=== PATIENT | female | born 1965 | race Caucasian/White ===

== ENCOUNTER 2023-03-04 16:54 | Outpatient (REF) | payer SELFPAY | END 2023-03-04 16:55 | disposition home or self-care (01) | LOC: NPLBCLIENT 16:54 | PROVIDERS: Visit Provider Nurse Practitioner Family | DX: L65.9 Nonscarring hair loss, unspecified (principal); K76.0 Fatty (change of) liver, not elsewhere classified | CPT/HCPCS: 84443 ==

== ENCOUNTER 2024-10-25 08:48 | Emergency (ER) | payer OTHER, SELFPAY ==
[2024-10-25 08:52] VITALS: BP 118/74; PULSE 71; RESP 18; TEMP 36; O2SAT 96; BMI 38.2
--- OUTSIDE RECORDS SUMMARY | 2024-10-25 08:52 | XMS_ITS | Clinical Summary ---
Author Organization [facility] [employer] [facility] Address [address] [place] [address] Care Team Providers Care Transfer Agent Name Role Phone Masha Fall MD Primary Care Provider [phone] Allergies Active Allergy Reactions Criticality Noted Date Comments House Dust Mite Itching Medium 03/21/2021 Medications cetirizine (ZYRTEC) 10 mg tablet cetirizine 10 mg tablet TAKE ONE TABLET BY MOUTH EVERY DAY NEEDED FOR FOR ALLERGY SYMPTOMS PROBLEMS Active olopatadine (Pataday Twice Daily Relief) 0.1 % ophthalmic solution Pataday Twice Daily Relief 0.1 % eye drops INSTILL 1 DROP INTO AFFECTED EYE(S) 2 TIMES PER DAY AT AN INTERVAL OF 6 TO 8 HOURS Active Active Problems Problem Noted Date Diagnosed Date Dyslipidemia 09/25/2021 Nonalcoholic fatty liver disease 03/31/2020 Obesity 03/31/2020 Encounters Date Type Department Care Team Description 10/04/2024 Lab Requisition [facility] [address] [place], [place] [id number] Tamra Wills RN, FRENCH LECTURER from Last 3 Months Immunizations Name Administration Dates Next Due Influenza, IIV4 06/14/2022,07/23/2021 Tdap 06/14/2022 Family History Medical History Relation Name Comments Ulcers Father Hypertension Mother Kidney disease Mother Cancer-breast Sister Relation Name Status Comments Father Mother Alive Sister Social History Tobacco Use Types Packs/Day Years Used Date Smoking Tobacco: Never Smokeless Tobacco: Never Tobacco Cessation:Counseling Given: Yes Alcohol Use Standard Drinks/Week Comments Not Currently 0 (1 standard drink = 0.6 oz pur e alcohol) PHQ-2 Answer Date Recorded PHQ-2 TOTAL SCORE 0 06/14/2022 Social Connections Answer Date Recorded Frequency of Communication with Friends and Fami ly Not on file 03/15/2022 Comments No Sex and Gender Information Value Date Recorded Sex Assigned at Not on file Legal Sex Female 9:15 AM CDT Gender Identity Not on file Sexual Orientation Not on file Obstetrics History Last Filed Vital Signs Vital Sign Reading Time Taken Comments Blood Pressure 127/82 06/14/2022 8:17 AM CDT Pulse 58 06/14/2022 8:17 AM CDT Temperature 36.3 C (97.3 F) 03/15/2022 7:47 AM CDT Respiratory Rate 16 03/21/2021 5:40 PM CDT Oxygen Saturation 97% 06/14/2022 8:17 AM CDT Inhaled Oxygen Concentration - - Weight 94.5 kg (208 lb 6.4 oz) 06/14/2022 8:17 A M CDT Height 157.9 cm (5' 2.17) 06/14/2022 8:17 AM CD T Body Mass Index 37.91 06/14/2022 8:17 AM CDT Plan of Treatment Health Maintenance Due Date Last Done Comments HIV for age 15-65 1979 Colonoscopy through age 75 2009 Pneumococcal series for age 50+ (1 of 1 - PCV) 2014 Zoster (shingles) series for age 50+ (1 of 2) 2014 BMI (ht and wt on same day) for age 18+ 06/14/2023 06/14/2022, 03/15/2022 Depression screening for age 12+ 06/14/2023 06/14/20 22, 06/14/2022 Mammogram for age 45-75 06/28/2023 06/28/2022, 10/05 COVID-19 vaccine series (2023- season) 2024 07/23/2021, 12/02/2020, 11/11/2020 Influenza for age 50-64 04/25/2024 06/14/2022, 07/23 Lipids for age 45-75 06/14/2027 06/14/2022 Pap test for age 21-65 10/04/2029 , 10/04/2024, 07/13/2019, Additional history exists Tetanus booster 06/14/2032 06/14/2022 RSV vaccine for adults or (1 - 1-dose 75+ series) 2039 Hepatitis C screening for ag e 18-79 Completed 06/14/2022 Tdap Completed 06/14/2022 Procedures Procedure Name Priority Date/Time Associated Diagnosis Comments LAB TRACKING EVENT Routine 10/04/2024 11 :38 AM REEFER ENGINEER Encounter for screening for malignant neoplasm of cervix BUTTON BREAKER THIN PREP PAP SCREEN IMAGED Routine 10/04/2024 11:38 AM REEFER ENGINEER Encounter for screening for malignant neoplasm of cervix HPV HIGH RISK Routine 10/04/2024 11:38 AM REEFER ENGINEER Encounter for screening for malignant neoplasm of cervix XR MAMMO BRADLEY BILAT SCREEN Routine 06/28/2022 1:39 PM CDT Visit for screening mammogram ANTI HCV Routine 06/14/2022 9:44 AM CDT Need for hepatitis C screening test LIPID PANEL W REFLEX MEASURED LDL Routine 06/14/2022 9:44 AM CDT Screening for lipid disorders from Last 3 Months or Most Recently Relevant to Health Maintenance Results * LAB TRACKING EVENT (10/04/2024 11:38 AM REEFER ENGINEER) Other (Other) Client Collect / Unknown 10/04/2024 11:38 AM REEFER ENGINEER 10/04/2024 6:10 PM REEFER ENGINEER us Tamra Wills RN, FRENCH LECTURER LAB BILL ONLY Final Result [facility] [address] [place] [address], * BUTTON BREAKER THIN PREP PAP SCREEN IMAGED (10/04/2024 11:38 AM REEFER ENGINEER) Case Report Gynecologic Cytology Report Case: [id number] Authorizing Provider: Tamra Wills RN, Collected: 10/04/2024 1138 FRENCH LECTURER Ordering Location: [facility] Received: 10/05/[address] [place] [address] First Screen: Mango Black Specimen: BUTTON BREAKER ThinPrep Vial Screening, Cervical 10/17/2024 8:22 AM REEFER ENGINEER [facility] INTERPRETATION/ RESULT NEGATIVE FOR INTRAEPITHELIAL LESION OR MALIGNANCY (NIL) (none) 10/17/2024 8:22 AM REEFER ENGINEER [facility] [employer] [facility]AT[facility] IMEN ADEQUACY Satisfactory for evaluation Endocervical cells cannot be evaluated due to severe atrophy Scant cellularity 10/17/2024 8:22 AM REEFER ENGINEER [facility] [employer] ENTRAL LABORATORY HPV REQUEST HPV and PAP 10/17/2024 8:22 AM REEFER ENGINEER [facility] [employer] ENTRAL LABORATORY Last Pap Date 07/30/2019 10/17/2024 8:22 AM REEFER ENGINEER [facility] [employer] [facility] Abnormal Pap or Gallup Bx in last 5 years No 10/17/2024 8:22 AM REEFER ENGINEER [facility] [employer] [facility] EN[facility] Gallup Bx Done Today No 10/17/2024 8:22 AM REEFER ENGINEER [facility] [employer] [facility] Additional Information 10/17/2024 8:22 AM REEFER ENGINEER [facility] [employer] [facility] Comment: Interpreted at [facility] - [address] [place] [address], [place] [address] Automated Review Successful 10/17/2024 8:22 AM REEFER ENGINEER [facility] [employer] ENTRAL LABORATORY Comment:Specimen processed s uccessfully by automated furniture maker device, ThinPrep Imaging System, [employer] ANCILLARY TESTING BUTTON BREAKER HPV Ordered, Please see separate report 10/17/2024 8:22 AM REEFER ENGINEER [facility] [employer] ENTRAL LABORATORY Note The pap test is a screening technique, not a diagnostic procedure. It is used primarily to screen for squamous cancers and precursor lesions. Published studies have shown that it is subject to both false negative and false positive results. The pap test should not be used as the sole means to diagnose or exclude pre-malignant and malignant lesions. 10/17/2024 8:22 AM REEFER ENGINEER [facility] ENTRAL LABORATORY Other (Cervical) 10/04/2024 11:38 AM REEFER ENGINEER 10/05/2024 3:28 PM REEFER ENGINEER Tamra Wills RN, FRENCH LECTURER PATHOLOGY/CYTOLOGY Fi nal Result Performing Organization Address [facility] Co de Phone Number [facility] [address] [place] [address], [place] * HPV HIGH RISK (10/04/2024 11:38 AM REEFER ENGINEER) TYPE 16 Negative Negative 10/07/2024 2:10 PM REEFER ENGINEER [facility] LAB[facility] TYPE 18 Negative Negative 10/07/2024 2:10 PM REEFER ENGINEER [facility] TRAL LABORATORY OTHER HIGH RISK TYPES Negative Negative 10/07/2024 2:10 PM REEFER ENGINEER [facility] TRAL LABORATORY Other Client Collect / Unknown 10/04/2024 11:38 AM REEFER ENGINEER 10/07/2024 8:43 AM REEFER ENGINEER Narrative [facility] - 10/07/2024 2:10 PM REEFER ENGINEER HPV types 16, 18, 31, 33, 35, 39, 45, 51, 52, 56, 58, 59, 66 and 68 DNA were undetectable or below the pre-set threshold. Methodology: Tory Hunter 4800 HPV Test us Tamra Wills RN, FRENCH LECTURER MICROBIOLOGY Final Result Performing Organization Address [facility] de Phone Number [facility] [address] [place] [address], [place] * XR MAMMO BRADLEY BILAT SCREEN (06/28/2022 1:39 PM CDT) Anatomical Region Laterality Modality BREASTS, Breast Left, Breast Right Bilateral Mammography Impressions 07/04/2022 12:56 PM REEFER ENGINEER There is no radiographic evidence for malignancy. Recommend annual mammograms. MAMMOGRAM ASSESSMENT: ACR 1 Negative PATIENTS: You will also receive a letter with your examination results in an easy to read format. If you have questions about your results, please contact your referring provider. Narrative 07/04/2022 12:56 PM REEFER ENGINEER For Patients: As a result of the Century Cures Act, medical imaging exams and procedure reports are released immediately into your electronic medical record. You may view this report before your referring provider. If you have questions, please contact your health care provider. XR MAMMO BRADLEY BILAT SCREEN [[id number]] CLINICAL HISTORY: This is an asymptomatic 57 y.o. patient. INDICATION FOR EXAM: Mammogram Screening. TECHNIQUE: CC & MLO views were obtained. This study was evaluated with the assistance of Computer-Aided Detection. Breast Tomosynthesis was used in interpretation. COMPARISON FILM: Yes 11/17/20 Outside Facility 09/10/19 Outside Facility FINDINGS: The breasts have scattered areas of fibroglandular density. There are no dominant masses, suspicious micro calcifications or areas of architectural distortion. us Masha Fall MD MAMMO Final Resul t * (ABNORMAL) LIPID PANEL W REFLEX MEASURED LDL [[id number]] (06/14/2022 9:44 AM CDT) CHOLESTEROL,TOTAL 222(H) 100 - 199 mg/dL 06/15/2022 5:36 PM CDT [facility] TRIGLYCERIDES 110 <150 mg/dL 06/15/2022 5:36 PM CDT [facility] HDL CHOLESTEROL 43 >40 mg/dL 5:36 PM CDT [facility] NON-HDL CHOLESTEROL 179(H) <145 mg/dl 06/15/2022 5:36 PM CDT [facility] CHOL/HDL RATIO 5.16(H) <4.50 06/15/2022 5:36 PM CDT [facility] LDL CHOLESTEROL 157(H) <=130 mg/dL 06/15/2022 5:36 PM CDT [facility] VLDL CHOLESTEROL 22 <=30 mg/dL 06/15/2022 5:36 PM CDT [facility] PROVIDER ORDERED STATUS RANDOM 06/15/2022 5:36 PM CDT [facility] TR[facility] Blood BLOOD SPECIMEN / Unknown Venipuncture / Unknown 06/14/2022 9:44 AM CDT 06/14/2022 9:44 AM CDT Masha Fall MD CHEMISTRY Final Resul t Performing Organization Address City/[facility]/ZIP Co de Phone Number [facility] [address] [place] [address], * ANTI HCV (06/14/2022 9:44 AM CDT) HEPATITIS C ANTIBODY Non-React layla Non-React layla 06/15/2022 5:55 PM CDT [facility] Comment:Antibodies to HCV no t detected; does not exclude the possibility of exposure to HCV. Blood BLOOD SPECIMEN / Unknown Venipuncture / Unknown 06/14/2022 9:44 AM CDT 06/14/2022 9:44 AM CDT us Masha Fall MD SEND OUTS Final Resul t Performing Organization Address City/[facility] Co de Phone Number [facility] [address] [place] [address], from Last 3 Months or Most Recently Relevant to Health Maintenance Insurance [employer] [id number] [facility] [place] [id number] Care Teams Transfer Agent Relationship Specialty Start Date End Date Masha Fall MD [address] [address] PCP - General Family Practice 03/15/22
--- OUTSIDE RECORDS SUMMARY | 2024-10-25 08:52 | XMS_ITS | Continuity of Care Document ---
Author Organization [facility] emaze[facility]I [facility] OFFICE Address [address] [place] [id number] Assessment Encounter Date Assessment Date Assessment LastModified by Organization Details LastModified Time 10/04/2024 10/04/2024 At least 15 minutes spent with patient, reviewing chart and completing documentation . [email or web address] Not available 10/04/2024 18:16:51 Plan of Treatment Reminders Order Date Submit Date Provider Last Modified By Organization Details Last Modified Time Details Appointments Any 30 025 09:30AM Lisa Whitaker MD Not available Not available Not available Lab pap, LB + HR HPV 025 10/04/19 25 [facility] Office, [address] [place] [address], [phone], 10/07/2024 17:14:59 Referral None record ed. Procedures None record ed. Surgeries None record ed. Imaging None record ed. Medication Orders None record ed. Patient TargetsNo targets recorded. Patient InstructionsNo instructions recorded. Reason for Referral None Reported. Problems Name Problem SNOMED Code Status Onset Date Resolution Date Notes Provider Name and Address Organization Details Recorded Time Dyslipidemia 375139270 Active 2021 Tamra Wills NP [address] [place], [address], [facility] [employer] 4 11:50:20 Non-alcoholic fatty liver 651202768 Active 2019 Tamra Wills NP [address] [place], [address], [facility] [employer] 4 11:50:22 Obesity 990619524 Active 2019 Tamra Wills, MAIL CLERK BILLS [address] [place], [address], [facility] Problem Notes None recorded. Procedures Surgical History Date Name Laterality Status Provider Name and Address Organization Details Recorded Time 024 Electrodessication and Curettage completed SANJU GARNICA, LASHAE [address] [place], [address], [facility] 10/28/2023 21:15:33 Appendectomy completed Lesa Hernadez, ABIMBOLA [address] [place], [address], [facility] 09/26/2021 10:17:45 Imaging Results None recorded. Procedure Notes None recorded. Medical Equipment None Reported. Allergies Allergen ID Allergen Name Allergen Category Reaction Reaction Severity Criticality Documentation Date Start Date Code Code System Note Provider Name and Address Organization Details Recorded Time 144 house dust allergeni c extract environme nt,medica tion Not available Not available Not available 03/31/2020 38929 9 RxNorm Not Available Not Available Not Available Medications Name Sig Start Date Stop Date Status Note LastModified by Organization Details LastModified Time Depo-Medrol 40 mg/mL suspension for injection Take 40 mg as needed by injection route, for injection x1 in office. 2024 active Lot [id number] Not Available Not Available Not Available cetirizine 10 mg tablet Take 1 tablet every day by oral route. active Not Available Not Available No t Available prednisone 20 mg tablet Take 1 tablet twice a day by oral route with meals for 3 days. 09/25 completed Not Available Not Available Not Available meclizine 12.5 mg tablet TAKE 1-2 TABLETS BY MOUTH 1/2 BEFORE BEDTIME NEEDED FOR DIZZINESS active Not Available Not Available No t Available ofloxacin 0.3 % ear drops INSTILL 5 DROPS IN BOTH EARS FOLLOWED BY COTTON EVERY DAY FOR 7 DAYS 12/03 completed Not Available Not Available Not Available amoxicillin 875 mg tablet TAKE 1 TABLET (875 MG) BY MOUTH TWO TIMES DAILY FOR 5 DAYS. 12/19 completed Not Available Not Available Not Available Ear Wax Removal Drops 6.5 % INSTILL 5 DROPS INTO AFFECTED EAR(S) 2 TIMES PER DAY 01/20 completed Not Available Not Available Not Available ciprofloxac in 0.3 % eye drops INSTILL 4 DROPS INTO RIGHT EAR TWICE A DAY X 7 DAYS. WE ARE USING THIS FOR EAR. 01/20 completed Not Available Not Available Not Available clotrimazol e 1 % topical solution INSTILL 1 DROP INTO RIGHT EAR TWICE A DAY FOR 14 DAYS active Not Available Not Available No t Available Valtrex 1 gram tablet Take 1 tablet every 12 hours by oral route as directed for 7 days. 09/25 completed Not Available Not Available Not Available ketoconazol e 2 % topical cream APPLY TO AFFECTED AREA(S) ONCE DAILY 08/04 completed Not Available Not Available Not Available naproxen 500 mg tablet Take 4-5 days/week 08/04 completed Not Available Not Available Not Available neomycin-po lymyxin-hyd rocort 3.5 mg-10,000 unit/mL-1 % ear drops,susp PLACE 3 DROPS INTO RIGHT EAR 3 TIMES DAILY FOR 7 DAYS. 12/19 completed Not Available Not Available Not Available All Day Allergy (cetirizine ) 10 mg capsule 1 capsule every day as needed for allergy problems 12/19 completed Not Available Not Available Not Available Flonase Allergy Relief 50 mcg/actuati on nasal spray,suspe nsion [place] 1 spray every day by intranasa l route. active Not Available Not Available No t Available Flonase Allergy Relief 06/07 completed Not Available Not Available Not Available Pataday Twice Daily Relief 0.1 % eye drops INSTILL 1 DROP INTO AFFECTED EYE(S) 2 TIMES PER DAY AT AN INTERVAL OF 6 TO 8 HOURS 12/19 completed Not Available Not Available Not Available Vitals Date Recorded Body height Body mass index (BMI) Body weight Respiratory rate Body temperature Oxygen saturation Oxygen saturation in Arterial blood by Pulse oximetry Heart rate Systolic blood pressure Diastolic blood pressure Provider Name and Address Organization Details Last Updated DateTime 5 160.02 cm 37.7 kg/m2 62517.4 6 g 26 /min 97.4 [degF] 96 % 96 % 70 /min 124 mm[Hg] 71 mm[Hg] Kacy Reaves [facility] 11:58:28 Social History Question Answer Notes LastModified by Organizat ion Details LastModified Time Tobacco Smoking Status Never Smoker Lesa Hernadez NP [address] [place], [address], [facility] 09/26/2021 10:17:34 What Is Your Level Of Alcohol Consumption? Occasional [email or web address] Information not available 09/26/2021 Sex: Unknown Functional Status None recorded. Mental Status None recorded. Family History Nothing Reported. Medical History No medical history recorded. Gynecological HistoryNo gynecological history recorded. Obstetrics History GPAL:G 0 P 0 0 0 0 Immunizations Vaccine Type Date Status Note Provider Nam e and Address Organization Details Recorded Time COVID-19, mRNA, LNP-S, PF, 30 mcg/0.3 mL dose 07/23/2021 completed SARAH ROY [address] [place], [address], [facility] 07/23/2021 18:55:21 Past Encounters Encounter ID Performer Location Encounter Start Date Encounter Closed Date Diagnosis/Indication Diagnosis SNOMED-CT Code Diagnosis ICD10 Code Diagnosis Note [id number] [facility] [place] [facility] [address] [facility] [place] [address] 09/06/2024 13:58:04 09/06/2024 17:27:11 Otomycosis 79859593 B36.9 - exam concerning for this- treat with Clotrimazo le- ENT referral in place Trochanter ic bursitis of left hip 6827179272 44144 M70.62 - reviewed options- patient would like to trial exercises and amenable to injection into L greater trochanter - 1mL of 1% Lidocaine mixed with 40mg of Depo-Medro l and injected into L greater trochater, patient tolerated well [id number] Tamra Wills NP [place] [facility] [address] [place] [address] 10/04/2024 11:38:21 10/04/2024 14:04:00 Screening for malignant neoplasm of cervix 273548619 Z12.4 No clinical concerns. Advised patient we will call with results in 2-4 weeks. Finding re lated to health insurance issues [id number] Z59.9 Not eligible for MNSure r/t income. Can we please see if patient is eligible for the NFH+C program? She should see a orthopaedi c/sports athletic trainer (sounds like she has an upcoming APC appointmen t); can we also add on that program. Health Concerns Section Related Observation LastModified by Organization Detai ls LastModified Time None Recorded Concern Status LastModified by Organization Details LastModified Time None Recorded Payers Encounter Date Sequence Insurance Name Policy Number Policy Woody Covered Member ID Woody Member ID Guarantor Name 10/04/2024 SLIDING FEE SCHEDULE - DISCOUNT Li Kvng Kim Notes Date Note Type Note Provider Name and Address Organization Details Recorded Time 10/04/2024 text/html Li Calderon i s a 59 year old Chinese-speaking patient who presents today for a Lito visit. Due for pap only. Pap: Last pap 07/30/19: NILM/HPV negative. No symptoms. Mammo: Last done 05/18. Bi-RADS 1. Had one repeat mammogram in [facility] due to fibroma. Sister has a history of breast cancer. Recovered. Dx'd at 51 in [facility]. PMH: non-alcoholic fatty liver disease, dyslipidemia, lumbar spine degenerative changes Tamra Wills, MAIL CLERK BILLS [address] [place], [address], [facility] 10/04/2024 18:17:00 OBGyn Episode No OBEpisode recorded.
--- OUTSIDE RECORDS SUMMARY | 2024-10-25 08:52 | XMS_ITS | Data Portability ---
Author Organization [facility] Address [address] [place] [address] [facility] [id number] Assessment Encounter Date Assessment Date Assessment LastModified by Organization Details LastModified Time 10/04/2024 10/04/2024 At least 15 minutes spent with patient, reviewing chart and completing documentation . [email or web address] Not available 10/04/2024 18:16:51 Plan of Treatment Reminders Order Date Submit Date Provider Last Modified By Organization Details Last Modified Time Details Appointments Any 30 2024 09:30A Thomas Whitaker MD Not available Not available Not available Lab pap, LB + HR HPV 2024 025 [facility] Office, [address] [place] [address] [place], [address], 10/07/2024 17:14:59 lipid panel, serum 2023 024 [facility] Office, [address] [place] [address] [place], [address], 01/30/2024 11:22:08 glycohemo globin, total, blood 2023 024 [facility] Office, [address] [place], [place] [address], [address], 01/30/2024 11:22:07 hepatic function panel, serum 2023 024 [facility] Office, [address] [place] [address] [place], [address], 01/30/2024 11:22:08 Referral patient navigator 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 2023 024 [email or web address] Not available 06/09/2024 15:06:43 otolaryng ologist referral - Significa nt scarring of right TM. 2023 024 [email or web address] Not available 06/09/2024 15:06:53 Procedures None recorded. Surgeries None recorded. Imaging MAMMO, screening , bilateral 2023 [facility] Radiology Department, [address] [place], [address], 03/25/2024 16:38:31 US, liver 2023 [facility] Radiology Department, [address] [place], [address], 03/23/2024 09:35:58 Medication Orders Depo-Medr ol 40 mg/mL suspensio n for injection [email or web address] [place] [address], [address] [place], [address], 09/06/2024 17:21:58 clotrimaz ole 1 % topical solution 2024 025 [facility], [address] [place], [address], 09/07/2024 10:48:41 meclizine 12.5 mg tablet 2023 024 [facility], [address] [place], [address], 06/07/2024 15:23:51 Patient TargetsNo targets recorded. Patient Instructions Encounter Date Encounter Id Patient Instructions Last Modified By Organization Details Last Modified Time 10/28/2023 [id number] Return as needed for further treatment [email or web address] Not available 10/28/2023 21:16:05 01/21/2024 [id number] At least 25 minutes spent with patient, reviewing chart and completing documentation. 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 Referring Physician: Tamra Wills, [facility], Encounter Date: 06/07/2024 Has class a regional truck driver's license. Loli sanchez to apply for [employer] expansion. Referring Physician: Tamra Wills [facility], Encounter Date: 06/07/2024 Results Created Date Observation Date Name Description Value Unit Range Abnormal Flag Note LastModifiedBy Organization Detail LastModifiedTime 01/30/20 24 01/30/2024 lipid panel , serum A1C 5.5 Not Available [facility] [address] [place], [address], 01/30/2024 11:22:08 01/30/20 24 01/30/2024 lipid panel , serum ALT 52 high Not Available [facility] [address] [place], [address], 01/30/2024 11:22:08 01/30/20 24 01/30/2024 lipid panel , serum total cholesterol 197 Not Available [facility] [address] [place], [address], 01/30/2024 11:22:08 01/30/20 24 01/30/2024 lipid panel , serum triglyceride s 129 Not Available [facility] [address] [place], [address], 01/30/2024 11:22:08 01/30/20 24 01/30/2024 lipid panel , serum HDL 34 Not Available [facility] [address] [place], [address], 01/30/2024 11:22:08 01/30/20 24 01/30/2024 lipid panel , serum LDL 137 Not Available [facility] [address] [place], [address], 01/30/2024 11:22:08 01/30/20 24 01/30/2024 hepat ic funct ion panel , serum A1C 5.5 Not Available [facility] [address] [place], [address], 01/30/2024 11:22:07 01/30/20 24 01/30/2024 hepat ic funct ion panel , serum ALT 52 high Not Available [facility] [address] [place], [address], 01/30/2024 11:22:07 01/30/20 24 01/30/2024 hepat ic funct ion panel , serum total cholesterol 197 Not Available [facility] [address] [place], [address], 01/30/2024 11:22:07 01/30/20 24 01/30/2024 hepat ic funct ion panel , serum triglyceride s 129 Not Available [facility] [address] [place], [address], 01/30/2024 11:22:07 01/30/20 24 01/30/2024 hepat ic funct ion panel , serum HDL 34 Not Available [facility] [address] [place], [address], 01/30/2024 11:22:07 01/30/20 24 01/30/2024 hepat ic funct ion panel , serum LDL 137 Not Available [facility] [address] [place], [address], 01/30/2024 11:22:07 01/30/20 24 01/30/2024 glyco hemog lobin , total , blood A1C 5.5 Not Available [facility] [address] [place], [address], 01/30/2024 11:12:51 01/30/20 24 01/30/2024 glyco hemog lobin , total , blood ALT 52 high Not Available [facility] [address] [place], [address], 01/30/2024 11:12:51 01/30/20 24 01/30/2024 glyco hemog lobin , total , blood total cholesterol 197 Not Available [facility] [address] [place], [address], 01/30/2024 11:12:51 01/30/20 24 01/30/2024 glyco hemog lobin , total , blood triglyceride s 129 Not Available [facility] [address] [place], [address], 01/30/2024 11:12:51 01/30/20 24 01/30/2024 glyco hemog lobin , total , blood HDL 34 Not Available [facility] [address] [place], [address], 01/30/2024 11:12:51 01/30/20 24 01/30/2024 glyco hemog lobin , total , blood LDL 137 Not Available [facility] [address] [place], [address], 01/30/2024 11:12:51 03/23/20 24 03/22/2024 US, liver No observ ation record ed. [address] Radiology [address] [place], [address], 03/24/2024 13:11:33 03/25/20 24 03/22/2024 MAMMO , scree cassidy, bilat eral No observ ation record ed. [address] Radiology Department [address] [place], [address], 03/26/2024 10:41:14 05/14/20 24 05/13/2024 MAMMO , scree cassidy, bilat eral No observ ation record ed. [address] Radiology [address] [place], [address], 05/17/2024 15:30:10 Result Notes Documentation Provider Name and Address Organization Details Recorded Time Mammo, Screening, Bilateral : Mammogram Mammogram Context: ACR density 1 Right: [place] [address] [place] [address], [address], [facility] [employer] 05/17/2024 15:30:10 Problems Name Problem SNOMED Code Status Onset Date Resolution Date Notes Provider Name and Address Organization Details Recorded Time Dyslipidemia 063005620 Active 2021 [place] [address] [place] [address], [address], [facility] [employer] 11:50:20 Non-alcoholic fatty liver 482410563 Active 2019 [place] [address] [place] [address], [address], [facility] [employer] 11:50:22 Obesity 902899715 Active 2019 [place] [address] [place] [address], [address], [facility] [employer] 11:50:25 Problem Notes None recorded. Procedures Surgical History Date Name Laterality Status Provider Name and Address Organization Details Recorded Time 024 Electrodessication and Curettage completed SANJU GARNICA CNP [address] [place], [address], [facility] [employer] 10/28/2023 21:15:33 Appendectomy completed Lesa Hernadez NP [address] [place], [address], [facility] [employer] 09/26/2021 10:17:45 Imaging Results Imaging Date Name Status LastModified by Organiz ation Details LastModified Time 03/22/2024 US, liver completed [address] Radiology [address] [place], [address], 03/24/2024 13:11:33 03/22/2024 MAMMO, screening, bilateral completed [address] Radiology Department [address] [place], [address], 03/26/2024 10:41:14 05/13/2024 MAMMO, screening, bilateral completed [address] Radiology [address] [place], [address], 05/17/2024 15:30:10 Procedure Notes None recorded. Medical Equipment None Reported. Allergies Allergen ID Allergen Name Allergen Category Reaction Reaction Severity Criticality Documentation Date Start Date Code Code System Note Provider Name and Address Organization Details Recorded Time 144 house dust allergeni c extract environme nt,medica tion Not available Not available Not available 03/31/2020 49817 9 RxNorm Not Available Not Available Not Available Medications Name Sig Start Date Stop Date Status Note LastModified by Organization Details LastModified Time Depo-Medrol 40 mg/mL suspension for injection Take 40 mg as needed by injection route, for injection x1 in office. 2024 active Lot [id number] Not Available Not Available Not Available [...] Relief 50 mcg/actuati on nasal spray,suspe nsion Cidra 1 spray every day by intranasa l [...] mass index (BMI) Body weight Respiratory rate Oxygen saturation Oxygen saturation in Arterial blood by Pulse oximetry Body temperature Heart rate Systolic blood pressure Diastolic blood pressure Provider Name and Address Organization Details Last Updated DateTime 4 160.02 cm 36.6 kg/m2 64094.1 8 g 22 /min 99 % 99 % 97.6 [degF] 66 /min 123 mm[Hg] 76 mm[Hg] Kacy Reaves [facility] 4 11:52:14 Date Recorded Body height Body mass index (BMI) Body weight Body temperature Oxygen saturation Oxygen saturation in Arterial blood by Pulse oximetry Heart rate Systolic blood pressure Diastolic blood pressure Provider Name and Address Organization Details Last Updated DateTime 4 160.02 cm 36.5 kg/m2 65993.0 3 g 96.9 [degF] 96 % 96 % 65 /min 118 mm[Hg] 70 mm[Hg] [facility] [place] [facility] 4 12:19:09 Date Recorded Body height Body mass index (BMI) Body weight Heart rate Oxygen saturation Oxygen saturation in Arterial blood by Pulse oximetry Systolic blood pressure Diastolic blood pressure Provider Name and Address Organization Details Last Updated DateTime 5 160.02 cm 37.9 kg/m2 53741.0 5 g 79 /min 94 % 94 % 118 mm[Hg] 72 mm[Hg] Lisa Whitaker MD [address] [place], [address] 8[facility] 5 17:15:09 Date Recorded Body height Body mass index (BMI) Body weight Respiratory rate Body temperature Oxygen saturation Oxygen saturation in Arterial blood by Pulse oximetry Heart rate Systolic blood pressure Diastolic blood pressure Provider Name and Address Organization Details Last Updated DateTime 5 160.02 cm 37.7 kg/m2 87018.4 6 g 26 /min 97.4 [degF] 96 % 96 % 70 /min 124 mm[Hg] 71 mm[Hg] Kacy Reaves [facility] 5 11:58:28 Social History Question Answer Notes LastModified by Organizat ion Details LastModified Time Tobacco Smoking Status Never Smoker Lesa Hernadez NP [address] [place], [address], [facility] 09/26/2021 10:17:34 What Is Your Level Of [...] mL dose 07/23/2021 completed SARAH ROY [address] [place], [address], [facility] 07/23/2021 18:55:21 Past Encounters Encounter ID Performer Location Encounter Start Date Encounter Closed Date Diagnosis/Indication Diagnosis SNOMED-CT Code Diagnosis ICD10 Code Diagnosis Note [id number] Tamra Wills NP [facility] [address] [facility] [place] [address] 03/27/2020 12:20:37 03/28/2020 17:42:40 Pain of left ankle joint 7870306685 [id number] M25.572 Acute onset of left ankle pain with swelling and warmth. While I would like to examine the ankle in person, I suspect that imaging and labs will be indicated regardless . No known preceding injury; some footwear changes but these do not explain severe nature of pain. Will obtain plain films and labs; consider gout, arthritis flare. I will call with results; if these studies are not available until next week when I am away I will ask Dr. Bourne or Esvin Hernadez to take over patient's follow-up. Advised rest, elevation, icing of joint and APAP (patient has been told to avoid NSAIDs). 03/31/20 Addendum: When patient was in clinic for her labs on 03/29, I briefly examined her ankle: Edematous over and posterior lateral malleolus; diffusely tender. No ecchymosis or erythema. Some warmth. ROM limited by pain but patient ambulates fairly easily. Reviewed I will put together a plan based on labs and X-rays. Advised to ER if sudden leg swelling increased and/or redness r/t concern for deep thrombus. 03/31/20 15:30 Addendum: Left a message asking patient to call back (Francoise pinedai ). CBC and ESR normal. Ankle XR normal. Uric acid very slightly elevated at 6.4mg/dl. [id number] Lesa Hernadez NP [facility] [address] [facility] [place] [address] 03/29/2020 10:25:20 03/29/2020 16:04:07 [id number] Tamra Wills NP [facility] [address] [facility] [place] [address] 04/17/2020 10:01:11 04/17/2020 10:53:41 Pain of left ankle joint 5347735675 4409196 M25.572 Persistent . RTC this afternoon to be evaluated by Dr. Riojas as scheduled. [id number] [facility] [address] [place] [address] 04/17/2020 16:52:02 04/25/2020 13:00:01 Pain in left foot 3155860207 [id number] Ja Keys MD [facility] [address] [place] [address] 07/10/2020 15:56:22 07/10/2020 16:43:31 Pain in left foot 5107938477 [id number] Ja Keys MD [facility] [address] [place] [address] 08/07/2020 15:57:11 08/07/2020 17:25:18 Pain in left foot 8230922419 39490 M79.672 [id number] [facility] [address] [place] [address] 08/08/2020 19:02:24 08/09/2020 10:33:37 Non-alcoholic fatty liver 581287144 K76.0 liver function panel Herpes zoster 8761539 B0 2.9 [id number] Renaldo Bourne MD [facility] [address] [place] [address] 09/25/2020 16:33:37 09/25/2020 17:20:32 Steatosis of liver 361088799 K76.0 needs to diet [id number] Tamra Wills NP [facility] [address] [place] [address] 10/11/2020 10:21:23 10/11/2020 14:12:17 Screening mammography 73260503 Z12.31 Reassuring breast exam today. Mammogram ordered. Breast cancer risk reduction reviewed. Podiatry referral underway. Dr. Bourne will provide primary care. [id number] MD MAXI [facility] [address] [place] [address] 01/09/2021 18:02:16 01/10/2021 12:21:34 Non-alcoholic fatty liver 288743306 K76.0 LFT's about the same, weight loss will help [id number] Renaldo Bourne MD [facility] [address] [place] [address] 01/30/2021 18:05:29 01/31/2021 12:09:50 Non-alcoholic fatty liver 921240651 K76.0 discuss weight and get f/u labs Pain of le ft ankle joint 2389380135 8510088 M25.572 needs APC [id number] Renaldo Bourne MD [facility] [address] [place] [address] 03/06/2021 17:51:26 03/06/2021 19:42:14 Non-alcoholic fatty liver 199041761 K76.0 discuss weight and get f/u labs [id number] SARAH ROY [facility] [address] [place] [address] 07/23/2021 17:43:48 09/12/2021 03:52:43 Administration of SARS-CoV-2 mRNA vaccine 1746784719 Z23 [id number] Renaldo Bourne MD [facility] [address] [place] [address] 08/07/2021 19:19:35 08/07/2021 19:46:22 Otitis externa 7069716 H60.93 prob many factors [id number] Lesa Hernadez NP [facility] [address] [place] [address] 09/26/2021 09:59:43 09/26/2021 10:39:35 Screening for malignant neoplasm of breast 802894302 Z12.39 Breast pain could be musculoske letal, as patient reports strenuous job, or breast cyst. Due to family history of breast cancer in sister, will do diagnostic mammogram and U/S. Follow up pending results Non-alcoho lic fatty liver 301477073 K76.0 Recheck labs today. Follow up pending results. Allergic rhinitis 991195 04 J30.9 Refill Cetirizine Hearing change 586796309 R44.9 Intermitte nt tinnitus/r educed hearing. Exam of ears normal today. Encouraged continued use of over-the-e ar headphones , avoidance of cotton swabs. Follow up if symptoms worsen. [id number] Tamra Wills NP [facility] [address] [facility] [place] [place] [address] 12/03/2021 10:41:56 12/03/2021 11:26:16 Pain of breast 65990697 N64.4 Resolving. Normal diagnostic mammo and U/S. Advised repeating mammo in 1 year. RTC with return of symptoms or new concerns. Non-alcoho lic fatty liver 870479746 K76.0 Stable LFTs. Should be checked annually along with routine screening labs. [id number] Dr. Ja Keys MD [facility] [address] [facility] [place] [address] 12/03/2021 11:09:26 12/03/2021 11:26:44 Carpal tunnel syndrome 59777858 G56.00 Pain of bi lateral hands 9704791768 8343674 M79.641 M79.642 [id number] Renaldo Bourne MD [facility] [address] [place] [address] [facility] [place] [address] 12/19/2022 10:45:04 12/19/2022 11:49:32 Non-alcoholic fatty liver 431361812 K76.0 needs labs Pain in fi nger of right hand 5226289961 27359 M79.644 prob beginning of osteoarthr itis Impacted c erumen of bilateral ears 7390862115 084002 H61.23 [id number] HAROLDO METZGER MD [facility] [address] [facility] [address] [facility] [place] [address] 02/11/2023 13:55:05 02/11/2023 14:45:47 Seborrheic dermatitis 45996523 L21.9 consider stronger cortisone cream Seborrheic keratosis 394 728295 L82.1 picked off the upper portion of the lesion on the scalp. Remainder are flat , on chest, and face. Dermatolog y consult to consider cryo treatment (we don't have available now) Multiple skin tags 61509 7009 L91.8 removed several in the underarms and neck, and one under the breasts. (total of 9 removed- using alcohol, pick ups and scissors, followed by silver nitrate to coagulate. ) Loss of scalp hair 76577 0004 L65.9 stress, vs other. Discussed options. will consider TSH in future [id number] Tamra Wills NP [facility] [address] [place] [address] 02/12/2023 10:37:40 02/12/2023 11:52:43 Loss of hair 345407381 L65.[address] Metzger; some symptoms consistent with concern for hypothyroi dism including hair thinning. Check TSH and we will call [facility] results. Screening for malignant neoplasm of breast 544305825 Z12.39 Reviewed breast cancer risk reduction with patient including maintainin g a healthy weight, diet low in alcohol and rich in fruits and vegetables . Mammogram ordered; we will call with results. Impacted c erumen in right ear 5992635057 567557 H61.21 Washed with 4 bottles of warm tap water over 30 minutes. Large cerumen plug finally cleared from canal; patient tolerated well. Attempted to remove left plug but limited by time (left was significan tly less impacted than right). Advised against q-tips. [id number] SANJU GARNICA CNP [facility] [address] [place] [address] 06/10/2023 18:50:14 06/10/2023 19:30:53 Female pattern alopecia 5050100 L64.8 Milia of eyelid 68350054 7 H02.829 Multiple skin tags 59591 7009 L91.8 Seborrheic keratosis 394 332766 L82.1 [id number] Tamra Wills NP [facility] [address] [place] [address] 08/04/2023 12:16:53 08/04/2023 12:52:48 Acute otitis externa 68727710 H60.509 Mild. RIght ear. 7-day course of Cipro 0.3% (need ophthalmic formulatio n r/t formulary; avoid neomycin as I cannot fully visualize TM). To call if any concerns, worsening. Impacted c erumen of bilateral ears 1524709977 766553 H61.23 Unable to completely remove all cerumen. Patient will start Debrox after she completes treatment for right OE. [id number] SANJU GARNICA CNP [facility] [address] [place] [address] 10/28/2023 19:28:24 10/28/2023 20:28:53 Inflamed seborrheic keratosis 420431726 L82.0 [id number] Tamra Wills NP [facility] [address] [place] [address] 01/21/2024 11:43:09 01/21/2024 12:32:32 Dyslipidemia 170631888 E78.5 Due for lipid check; we will call with results. Obesity 496464992 E66.9 BMI remains 36. Encouraged continued attention to TLCs. Non-alcoho lic fatty liver 927925129 K76.0 Due for annual check; in addition will obtain liver U/S as this has not been done. Impacted c erumen of bilateral ears 7274039183 970086 H61.23 Able to remove all cerumen. Restart Debrox if needed. No longer wearing earplugs at work. Screening for malignant neoplasm of breast 483339505 Z12.39 Reviewed breast cancer risk reduction with patient including maintainin g a healthy weight, diet low in alcohol and rich in fruits and vegetables . Mammogram ordered for February when patient is du. Diabetes m ellitus screening 687825247 Z13.1 Routine. Call with results. Low back pain 294558203 M54.50 x 3 weeks. With right-side d sciatic distributi on symptoms. No alarm features. Reassuring exam. Reviewed LBP HEP; patient will start this. RTC if no improvemen t in 4-6 weeks. [id number] Tamra Wills NP [facility] [address] [place] [address] 06/07/2024 12:13:03 06/07/2024 15:10:48 Insomnia 819306161 G47.00 Conservati ve care reviewed. Night time Meclizine may also help with this. 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 Likely contributi ng to episodes of vertigo and abnormal hearing. ENT and audiology referrals indicated. Patient has [place] residence and will be eligible for [facility] expansion in the coming months. Appointmen t set up today to help patient apply.We will continue Cetirizine and I advised 100% adherence to Flonase. Trial of PRN night-time Meclizine. Cautioned on sedation and side effects.Pa tient to call with any worsening or other concerns.D ue to F/U here 09/18. Finding re lated to health insurance issues [id number] Z59.9 [id number] MD [facility]I [facility] [address] [facility] [place] [address] 09/06/2024 13:58:04 09/06/2024 17:27:11 Otomycosis 81820886 B36.9 - exam concerning for this- treat with Clotrimazo le- ENT referral in place Trochanter ic bursitis of left hip 8579544259 10950 M70.62 - reviewed options- patient would like to trial exercises and amenable to injection into L greater trochanter - 1mL of 1% Lidocaine mixed with 40mg of Depo-Medro l and injected into L greater trochater, patient tolerated well [id number] Tamra Wills NP [facility] [address] [place] [address] 10/04/2024 11:38:21 10/04/2024 14:04:00 Screening for malignant neoplasm of cervix 462713268 Z12.4 No clinical concerns. Advised patient we will call with results in 2-4 weeks. Finding re lated to health insurance issues [id number] Z59.9 Not eligible for M[employer] r/t income. Can we please see if patient is eligible for the NFH+C program? She should see a orthopaedi c/audit specialist (sounds like she has an upcoming APC appointmen t); can we also add on that program. Health Concerns Section Related Observation LastModified by Organization Detai ls LastModified Time None Recorded Concern Status LastModified by Organization Details LastModified Time None Recorded Advance Directives Directive None Recorded Payers Encounter Date Sequence Insurance Name Policy Number Policy Woody Covered Member ID Woody Member ID Guarantor Name 10/28/2023 SLIDING FEE SCHEDULE - DISCOUNT Li Kim 01/21/2024 SLIDING FEE SCHEDULE - DISCOUNT iL Kim 06/07/2024 SLIDING FEE SCHEDULE - DISCOUNT Li Kim 09/06/2024 SLIDING FEE SCHEDULE - DISCOUNT Li Kim 10/04/2024 SLIDING FEE SCHEDULE - DISCOUNT Li Kvng Kim Notes Date Note Type Note Provider Name and Address Organization Details Recorded Time 10/28/2023 text/html Patient presents for treatment of irritated seborrheic keratosis on her face and chest that are very itchy. SANJU GARNICA CNP [address] [place], [address], [facility] [employer] 10/28/2023 21:16:08 01/21/2024 text/html 58 y.o. [place]-speaking woman presents for annual exam. Li is working at the [employer] in [place] [employer]. She is enjoying this work. Lab/Screening Review:LFTs: Last checked 2022: 1.5 ULN.Cholesterol Check: Due. Has had elevated lipids in the past.Mammo: 03/16. WNL.Last Pap 07/30/19: NILM/HPV negative - due 07/30/24 ROS:Continues to struggle with plugged ears. Worse during allergy season. Taking Cetirizine with some relief. Frequent clear rhinorrhea. ~3 week history of right thigh to leg burning pain, occasionally extends to foot. No preceding injury. 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 No weakness, numbness, GI/ dysfunction. Occasional headache when allergies are bad. No breast concerns. Breastfed both children x 2 years. Sister has a history of breast cancer. Recovered. Dx'd at 51 [address] [facility]. No cervical or uterine cancer history in family. Last mammo 03/16 WNL.GyneHx Review: . LMP at age 44. No vaginal bleeding. Tamra Wills, [address] [address] [place], [address], [facility] [employer] 01/21/2024 13:37:08 06/07/2024 text/html 58 y.o. [place]-speaking woman presents worsening ear pain, sensation of vertigo, hearing changes and mild dysuria. Patient has a longstanding history of bilateral ear pain, ear pain and headaches. Typically worse during allergy season. Patient was concerned her symptoms may be r/t high BP; reassured by normal reading. New concerns of worsening quality of sleep and sensation of room spinning, especially when lying down. This can make it hard to fall and stay asleep. Will also have episodes where she feels she is walking drunk. No actual falls or bumping into koroma. Intermittent episodes of feeling she can't hear as well. Episodes of tinnitus. Not continuous. Ear drops don't help. Inability to hear is also new. Tinnitus is not new. Cannot recall having any liquid discharge from ear. Headache is sometimes frontal, sometimes temporal. No pain with sinus palpation. Constant clear runny nose. Takes daily cetirizine with moderate improvement in SLATER. Takes Flonase most nights. Reports she is under more stress. Not sleeping well. Wakes up tired. Dysuria: Mild burning only with urination. No foul odor, N/V, flank pain. POCT UA today WNL. Advised gentle wiping, hydration. To call with any worsening. Continues working at the [employer] in [place] [employer] and [employer]. Tamra Wills NP [address] [place], [address], [facility] [employer] 06/07/2024 13:09:59 09/06/2024 text/html Li is in for R ear concerns and L leg pain. 1. leg pain:For 2 months, has had leg pain, primarily left. No recent trauma or inciting incident.In the morning the outside of her L leg feels numb.Unable to lay on L side at night 2/2 pain. Worse with activity. Feels like leg is weak.No relief with Tylenol.History of a fall many years ago with L leg pain, improved with PT. This pain is different. 2. Hasn't been able to hear out of R ear for weeks. History of cerumen and scarring (has been referred to ENT, hasn't seen them yet). Tried Debrox without relief. No significant pain, sometimes mild discomfort on outside of ear. Lisa Whitaker MD [address] [place], [address], [facility] [employer] 09/06/2024 17:22:28 10/04/2024 text/html Li Kvng i s a 59 year old [place]ayan-speaking patient who presents today for a Lito visit. Due for pap only. Pap: Last pap 07/30/19: NILM/HPV negative. No symptoms. Mammo: Last done 05/18. Bi-RADS 1. Had one repeat mammogram in [facility] due to fibroma. Sister has a history of breast cancer. Recovered. Dx'd at 51 [address] [facility]. PMH: non-alcoholic fatty liver disease, dyslipidemia, lumbar spine degenerative changes Tamra Wills, [employer] [address] [place], [address], [facility] - [facility] 10/04/2024 18:17:00 OBGyn Episode No OBEpisode recorded.
--- NOTE | 2024-10-25 09:33 | ED.GENADULT ---
HPI - General Adult General Time Seen by Provider: 09:33 Date Seen: 10/25/24 Chief complaint: Extremity Pain/Injury, Lower Stated complaint: Severe pain in left leg, difficulty walking Time Seen by Provider: 10/25/24 09:32 Source: patient and RN notes reviewed Mode of arrival: ambulatory Limitations: no limitations History of Present Illness HPI narrative: This 59-year-old female is coming in with left leg pain. Since July she has been having pain that goes from the left hip area all the way down to the ankle. Today when she was going to work and attempting to get out of the car, could barely even walk the pain was so bad. She still has control of her bowel and bladder. There is no traumatic change or injury precipitating this. She has had no fevers. No history of back pain. This started in July with pain going all the way down the leg. She also notes pain now in the knee area. She is here with a relative that is doing some interpretation for her. He has had sciatica before, they wonder if she has sciatica. 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 No tobacco products. Related Data Previous Rx's ?Medication ?Instructions ?Recorded acetaminophen 500 mg capsule 1,000 mg (2 x 500 mg) PO Q8-10H 10/25/24 PRN #60 caps cyclobenzaprine 10 mg tablet 10 mg PO TID PRN muscle spasm #30 10/25/24 tabs ibuprofen 600 mg tablet 600 mg PO TID PRN #30 tabs 10/25/24 prednisone 20 mg tablet 20 mg PO BID #10 tabs 10/25/24 Allergies Allergy/AdvReac Type Severity Reaction Status Date / Time ethinyl estradiol (From Allergy Mild eye Verified 10/25/24 09:04 Seasonale (91)) swelling levonorgestrel (From Allergy Mild eye Verified 10/25/24 09:04 Seasonale (91)) swelling Review of Systems Narrative: As per HPI. Exam Const: Vital Signs, click to edit/add: Vital Signs - 24 hr 10/25/24 08:52 Temperature 96.8 F L Pulse Rate [Pulse Oximeter] 71 Respiratory Rate 18 Blood Pressure [Ri ght Upper Arm] 118/74 Pulse Oximetry 96 Oxygen Delivery Me thod Room Air This 59-year-old female is alert, interactive, no apparent distress. She is noted to have no lower extremity edema. She does demonstrate normal light touch sensation. She has complaints of pain on palpation over the greater trochanter on the left side, complaints of pain with palpating in range of motion of her knee. She has no pain when the left hip is isolated, I can do internal and external range of motion without eliciting any pain, she states there is no pain within the hip itself. There is potentially some pain with sciatic notch palpation. I would say she has a straight leg raise that is positive. Am able to document normal and symmetrical dorsiflexion and plantar flexion strength testing. The leg is warm, has no abnormal vascularity pattern. Documenting provider has reviewed patient's vital signs: yes Course Course ED Course: Patient is complaining of knee pain on examination on this left side, there is some pain over the greater trochanter but her history does seem to be concerning for sciatica given that she is feeling pain shooting down the leg. I do feel confident that she does not have any hip joint pain on examination. Will get lumbar spine images, will look at her left knee to see if there is any potential arthritis of the knee. I do think overall clinically though that this is probably a radiculopathy/ sciatica. There is no definite motor or red flag symptoms at this time. Will await the imaging and probable plan for treatment of sciatica an outpatient management. Reevaluation(s) Time of Reevaluation #1: 10:57 Reevaluation #1: Patient did get Toradol while here with improvement in her symptoms. Have provided copies of her x-rays. There is a small left effusion on the knee, no significant arthritis. Will have to see if treatment of probable sciatica improves symptoms. If her knee pain goes away, likely just referred pain. However, did review if she has ongoing knee issues, could have something like degenerative cartilage tear in the knee. We did review this. She is going to need outpatient follow-up. She does not have health insurance at this time, did discuss with them [facility] With will put her prescriptions through under this and request that they follow up with them. Vital Signs Vital signs: Initial Vital Signs Temperature 96.8 F L 10/25/24 08:52 Temperature Source Temporal Artery Scan 10/25/24 08:52 Pulse Rate 71 10/25/24 08:52 Respiratory Rate 18 10/25/24 08:52 Blood Pressure 118/74 10/25/24 08:52 Blood Pressure Mean 88 10/25/24 08:52 Blood Pressure Position Sitting 10/25/24 08:52 Pulse Oximetry 96 10/25/24 08:52 Oxygen Delivery Method Room Air 10/25/24 08:52 Vital Signs Temperature 96.8 F L 10/25/24 08:52 Pulse Rate 71 10/25/24 08:52 Respiratory Rate 18 10/25/24 08:52 Blood Pressure 118/74 10/25/24 08:52 Pulse Oximetry 96 10/25/24 08:52 Oxygen Delivery Method Room Air 10/25/24 08:52 Temperature 96.8 F L 10/25/24 08:52 Pulse Rate 71 10/25/24 08:52 Respiratory Rate 18 10/25/24 08:52 Blood Pressure 118/74 10/25/24 08:52 Pulse Oximetry 96 10/25/24 08:52 Oxygen Delivery Method Room Air 10/25/24 08:52 Medications Administered Medications: Discontinued Medications Generic Name Dose Route Start Last Admin Trade Name Freq PRN Reason Stop Dose Admin Ketorolac Tromethamine 30 mg 10/25/24 10:36 10/25/24 10:42 Ketorolac 30 Mg/Ml Inj IM 10/25/24 10:37 30 mg ONCE ONE Administration Medical Decision Making Imaging Data XR lumbar spine: Attestation: I have reviewed the pertinent imaging results. My impression: Do appreciate decreased disc space between L5-S1, some anterior changes along the vertebrae. Await Radiology over-read. Radiologist's impression: Patient: WILFRED SOLIMAN Facility:?[facility] Patient ID:?[id number] Site Patient ID:?[id number]. Site :?[id number] Study:?XRay-Spine Lumbar 3v-10/25/2024 10:48:20 AM Ordering Physician:Romario Mcleod Final Report: INDICATION: Left sciatica TECHNIQUE: Lumbar spine 3 view. COMPARISON: None. FINDINGS: Bones: There are 5 lumbar type vertebral bodies. Alignment is normal. No fractures or significant bone lesions. Joints: Qvyo-tj-smthvbya multilevel degenerative change characterized by anterior disc osteophyte complexes and facet joint osteoarthrosis, most prominent at L5-S1. Soft tissues: Possible small left renal calculus measuring approximately 6 mm. IMPRESSION: Multilevel degenerative change, most prominent at L5-S1. Possible subcentimeter left renal calculus. Dictated by Mandy Rowell MD @ 10/25/2024 10:54:42 AM (Electronic Signature) XR left knee: Attestation: I have reviewed the pertinent imaging results. My impression: Do not appreciate any significant arthritis on my preliminary review. Radiologist's impression: Patient: WILFRED SOLIMAN Facility:?[facility] Patient ID:?[id number] Site Patient ID:?[id number]. Site :?[id number] Study:?XRay-Knee Left 2v-10/25/2024 10:47:17 AM Ordering Physician:?Anh Mcleod Final Report: Indication: Nontraumatic left knee pain Technique: Left knee 2 views Comparison: None Findings: Bones: Alignment is normal. No fractures or bone lesions. Joint spaces: Small joint effusion. Joint spaces are well maintained. No degenerative changes. Soft tissues: Unremarkable. Impression: Small joint effusion. No acute osseous abnormality Dictated by Mandy Rowell MD @ 10/25/2024 10:50:10 AM (Electronic Signature) Discharge Plan Discharge Clinical Impression: Left sided sciatica, Acute pain of left knee Patient Disposition: Home, Self-Care Condition: Stable Instructions: Sciatica (ED), Knee Pain (ED) Additional Instructions: It is unclear at this time if the left knee pain is just referred pain from the sciatic up or if you could have something independently happening with this knee. If you have ongoing issues despite treatment of sciatica, may need further evaluation of the knee as well. Will have you try prednisone as prescribed. Have written for Tylenol, ibuprofen and a muscle relaxant Flexeril to be used to help with pain and symptom management. Need to schedule a follow-up appointment for re-evaluation at [facility]. Activity Level: Activity as Tolerated Prescriptions: New acetaminophen 500 mg capsule 1,000 mg PO Q8-10H PRNQty: 60 0RF ibuprofen 600 mg tablet 600 mg PO TID PRNQty: 30 0RF prednisone 20 mg tablet 20 mg PO BID Qty: 10 0RF cyclobenzaprine 10 mg tablet 10 mg PO TID PRN (Reason: muscle spasm) Qty: 30 0RF Follow Up/Referrals: Provider,Not a Local [Primary Care Provider] - Stand Alone Forms: [employer] [place] Info Instructions
[2024-10-25] MEDS: KETOROLAC 30 MG/ML inj IM (10:42)
== END 2024-10-25 11:27 | disposition home or self-care (01) ==
PROVIDERS: Emergency Provider Family Medicine
DX: M25.562 Pain in left knee (principal); M54.32 Sciatica, left side
CPT/HCPCS: 72100; 73560; 96372; 99284; T1013; J1885